=== PATIENT | male | born 1950 | race Caucasian/White ===

== ENCOUNTER 2021-08-05 17:15 | Emergency (ER) | payer MEDICARE ==
[~2021-08-05 17:15] MED LIST: AMARYL4 MG PO; AMLODIPINE BESYL5 MG PO; COZAAR50 MG PO; HCTZ12.5 MG PO; JANUMET 50-1,01 EACH PO; LIPITOR40 MG PO; UROCIT-K10 MEQ PO
[2021-08-05] MEDS ORDERED: KEFLEX250 MG PO ×2 (19:28→19:50)
[2021-08-05] MEDS ORDERED: NORCO 5-325 TA1 EACH PO (19:50)
== END 2021-08-05 20:09 | disposition home or self-care (01) ==
LOC: FER 17:15
DX: S62.631A Displaced fracture of distal phalanx of left index finger, initial encounter for closed fracture (principal); S61.210A Laceration without foreign body of right index finger without damage to nail, initial encounter; Z23 Encounter for immunization; I10 Essential (primary) hypertension; E11.9 Type 2 diabetes mellitus without complications; E78.5 Hyperlipidemia, unspecified; W23.0XXA Caught, crushed, jammed, or pinched between moving objects, initial encounter; Y92.009 Unspecified place in unspecified non-institutional (private) residence as the place of occurrence of the external cause
CPT/HCPCS: 73140; 90471; 90715